=== PATIENT | male | born 1990 | race Caucasian/White ===

== ENCOUNTER 2023-11-24 22:10 | Emergency (ER) | payer SELFPAY ==
[2023-11-24] MEDS: Ketorolac 30 MG/ML SDV IM ONE (22:50)
== END 2023-11-25 00:59 | disposition home or self-care (01) ==
LOC: MW.ED 22:10
DX: M25.531 Pain in right wrist (principal); M48.02 Spinal stenosis, cervical region; Z75.8 Other problems related to medical facilities and other health care; Z79.899 Other long term (current) drug therapy
CPT/HCPCS: 70450; 70450-26; 72125; 72125-26; 73110-26-RT; 73110-RT; 99283; 99284